=== PATIENT | female | born 2000 | race Caucasian/White ===

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

== ENCOUNTER → 2018-05-08 | Outpatient (REF) | payer OTHER | LOC: M SFHCLERA 16:59 | DX: J02.9 Acute pharyngitis, unspecified (principal) ==

== ENCOUNTER → 2018-07-03 | Outpatient (REF) | payer OTHER ==
[2018-07-04 14:24] LABS: CHLAMYDIA DNA AMPLIFICATION NEGATIVE (NEGATIVE); GC DNA AMPLIFICATION NEGATIVE (NEGATIVE)
== END ==
LOC: M SFHCLERA 20:17
PROVIDERS: ATTEND Physician Assistant
DX: N89.8 Other specified noninflammatory disorders of vagina (principal)

== ENCOUNTER → 2018-12-12 | Outpatient (REF) | payer OTHER | LOC: M SFHCLERA 17:36 | PROVIDERS: ATTEND Nurse Practitioner Family | DX: N89.8 Other specified noninflammatory disorders of vagina (principal) | CPT/HCPCS: 81002; 81025; 87086; G0463 ==

== ENCOUNTER → 2019-02-05 | Outpatient (CLI) | payer OTHER ==
--- NOTE | 2019-02-05 13:49 | REP ---
REASON: Pain. No trauma. COMPARISON: No priors. FINDINGS: No acute fracture or destructive osseous lesion. The mortise is intact. Electronically Signed by Chau Nicole DO 02/05/2019 04:45 P
--- NOTE | 2019-02-05 13:50 | REP ---
REASON: Pain. No trauma. No trauma. No priors. FINDINGS: The joint spaces are symmetric and relatively well maintained. There is no evidence of acute fracture or destructive osseous lesion. IMPRESSION: Negative. Electronically Signed by Chau Nicole DO 02/05/2019 04:45 P
== END ==
LOC: M LRY 11:35
PROVIDERS: ATTEND Nurse Practitioner Family
DX: S99.921A Unspecified injury of right foot, initial encounter (principal); X58.XXXA Exposure to other specified factors, initial encounter; Y92.89 Other specified places as the place of occurrence of the external cause

== ENCOUNTER 2019-11-29 01:22 | Outpatient (CLI) | payer OTHER ==
[~2019-11-29] VITALS: Ht 172.7 cm; Wt 69.1 kg
[~2019-11-29 01:22] MED LIST: MULTTAB20 PO; PROBCAP14 PO; UNIS25TA3 PO; ZOLO25TA PO
[2019-11-29 01:39] VITALS: BP 129/76
--- NOTE | 2019-11-29 02:12 | IPNPDOC ---
Text Note Date of Service The patient was seen on 11/29/19. NOTE 19 yo G1 @36+6wks presents with concern for something hard in her vagina. she thinks that her baby is low. denies becka/vb. +FM. vitals: normal NAD, laying in bed abd: nd, gravid, soft, nt, cephalic le: no edema/erythema/tenderness fht: 135/mod krishan/pos accel/no decel toco: irregular ctx ce: ft/75/-3 (per nursing exam) a/p patient not in labor. discussed s/s of labor with patient. return precautions given. f/u with regularly scheduled clinic. Le, DO VS,Cristianbone, I+O VS, Fishbone, I+O Vital Signs Date Time Temp Pulse Resp B/P (MAP) Pulse Ox O2 Delivery O2 Flow Rate FiO2 11/29/19 01:39 98.6 131 18 129/76 (93) LACIE FRANKLIN DO Nov 29, 2019 02:12
== END 2019-11-29 02:05 | disposition home or self-care (01) ==
LOC: M LDO 01:22
PROVIDERS: ATTEND Obstetrics & Gynecology
DX: O26.893 Other specified pregnancy related conditions, third trimester (principal); Z3A.36 36 weeks gestation of pregnancy
CPT/HCPCS: 59025; G0378; G0463

== ENCOUNTER 2019-12-05 12:07 | Outpatient (CLI) | payer OTHER ==
[~2019-12-05] VITALS: Ht 172.7 cm; Wt 68.7 kg
[2019-12-05 12:24] VITALS: BP 99/57
[2019-12-05] MEDS ORDERED: IRON1TAB2 PO (12:32)
[2019-12-05] MEDS ORDERED: CRAN450T4 PO (12:32)
[2019-12-05] MEDS ORDERED: TUMS750C22 PO (12:32)
[2019-12-05 14:17] VITALS: BP 115/60
--- NOTE | 2019-12-05 16:26 | IPNPDOC ---
Text Note Date of Service The patient was seen on 12/05/19. NOTE [facility] LND Triage Note S: Becki is a 19yo at 37+5wks who presents to LND Triage with c/o SROM this morning. She states she has felt leaking of fluid since early, now with contractions and pressure; also reports that she lost her mucous plug yesterday. She endorses excellent movement, denies VB. Her has been complicated by Depression (on Zoloft); anemia, and underweight (TWG now >40lbs). O: VSS, afebrile, normotensive FHR 140s, moderate variability, + accels, no decels noted CTX by TOCO: present, but irregular and mild by palpation SSE: no pooling, no bleeding VE: /-3, posterior and soft Ferning: Negative ISAC: SDP of LLQ: 4.18x2.79cm; VTX A: 19yo at 37+5wks, not in labor, intact membranes. Category I FHT/reactive. P: Pt discharged home with labor/danger/SROM/return precautions. f/u in clinic for TI tomorrow, [id number] f/u in LND PRN VS,Fishbone, I+O VS, Fishbone, I+O Vital Signs Date Time Temp Pulse Resp B/P (MAP) Pulse Ox O2 Delivery O2 Flow Rate FiO2 12/05/19 14:17 97.7 87 20 115/60 (78) 97 Room Air DANNY ATWOOD CNM Dec 05, 2019 16:26
== END 2019-12-05 14:23 ==
LOC: M LDO 12:07 → UNDOADMIN 12:52 → M LDI 12:52 → M LDO 14:23
PROVIDERS: ATTEND Registered Nurse Maternal Newborn
DX: O26.893 Other specified pregnancy related conditions, third trimester (principal); Z3A.37 37 weeks gestation of pregnancy
CPT/HCPCS: 59025; 76815; G0378; G0463

== ENCOUNTER 2019-12-06 10:18 | Inpatient (IN) | payer OTHER ==
[2019-12-06] VITALS (31 sets, daily range): BP systolic 91–140; BP diastolic 53–82
[~2019-12-06] VITALS: Ht 172.7 cm; Wt 67.4 kg
[~2019-12-06 10:18] MED LIST changes: +CRAN450T4 PO; +IRON1TAB2 PO; +TUMS750C22 PO
[2019-12-06] MEDS ORDERED: LR 1,000 ML IV SCH (10:59)
[2019-12-06 11:28] LABS: BASO # 0.1 10^3/uL (0.0-0.2); BASO % 0.4 % (0.0-1.0); EOS # 0.1 10^3/uL (0.0-0.5); EOS % 0.6 % (0.0-3.0); HEMATOCRIT 35.6 % (36.0-47.0); HEMOGLOBIN 11.9 g/dl (12.0-15.5); LYMPH % 17.2 % (24.0-44.0); MEAN CORPUSCULAR HEMOGLOBIN 30.2 pg (27.0-33.0); MEAN CORPUSCULAR HGB CONC 33.4 g/dl (32.0-36.5); MEAN CORPUSCULAR VOLUME 90.4 fl (80.0-96.0); MONO # 0.9 10^3/uL (0.0-0.8); MONO % 7.7 % (0.0-5.0); NEUTROPHILS # 8.4 10^3/uL (1.5-8.5); NEUTROPHILS % 71.5 % (36.0-66.0); PLATELET COUNT, AUTOMATED 242 10^3/uL (150-450); RED BLOOD COUNT 3.94 10^6/uL (4.00-5.40); WHITE BLOOD COUNT 11.8 10^3/uL (4.0-10.0)
[2019-12-06] MEDS ORDERED: LACTATED RINGER'S 1000 ML IV STA (12:12)
[2019-12-06] MEDS ORDERED: PROMETHAZINE INJ 25 MG/ML VIAL (J2550) IV ONE (12:15)
[2019-12-06] MEDS ORDERED: BUTORPHANOL 2 MG/ML INJ (J0595) IV PRN (12:15)
--- NOTE | 2019-12-06 13:07 | HPEPDOC ---
Obstetrical History & Physical General Date of Admission Dec 06, 2019 at 10:18 History of Present Illness S: Becki is a 19yo at 37+6wks gestation, EDC [id number] by LMP/1TUS, who is being directly admitted to [facility] for SROM and labor. She reports ROM this morning at 0900 with clear fluid, followed by regular painful contractions. She endorses excellent movement and denies VB. Her spouse is here with her at the bedside. complicated by depression (on Zoloft), anemia, an dunderweight (TWG now >40lbs). Her blood Type is A Positive GBS Negative Chief Complaint: Contractions, term, Rupture of membranes Age: 19 : 1 Term: 0 Pre-term: 0 Abortions: 0 Livin Care Care: Good Care Number of Visits: 6 Dating Final EDC: Dec 21, 2019 Final EDC for Daily Update: Dec 21, 2019 Final EDC by: LMP LMP: Mar 08, 2019 Antepartum Course Diagnos(e)s Depression Underweight Anemia Height (inches): 68 Pre- weight (lbs.): 103 Admission Weight (lbs.): 149 Change in Weight (lbs.): 46 Past Medical History Past Obstetrical History : Past Obstetrical History: Primgravida [employer] History: Abnormal Pap (LSIL - needs f/u Pap 05/2020) Past Medical History Medical History Anemia Surgical History: Denies/None Family History Significant Family History: No pertinent family hx Social History Marital Status: Family situation: Spouse/partner home Psychosocial History: Depression * Smoker: non-smoker Alcohol: Denies Drugs: denies Imunizations Tdap status: current Influenza Status: current Allergies Coded Allergies: No Known Drug Allergies (Verified Allergy, Unknown, 07/11/19) Medications Scheduled Cranberry Fruit (Cranberry) 450 Mg Tablet, 1 TAB PO QHS Doxylamine Succinate (Unisom Sleep Aid) 25 Mg Tablet, 1 TAB PO QPM Ferrous Sulfate (Iron) 325 Mg Tablet, 1 TAB PO BID Lactobacillus Acidophilus (Probiotic) 1 Each Capsule, 1 CAP PO DAILY No122/Iron/Folic Acid ( Multi Tablet) 1 Each Tablet, 1 TAB PO DAILY Sertraline Hcl (Zoloft) 25 Mg Tablet, 25 MG PO DAILY Scheduled PRN Calcium Carbonate (Tums) 300 Mg Tab.chew, 1 TAB PO Q6HP PRN for INDIGESTION Physical Examination Physical Examination GENERAL: Alert and oriented times three. ABDOMEN: Gravid and non-tender to touch. FETUS: Is vertex (VTX) by sterile vaginal examination. HEART RATE: Regular rate. LUNGS: Observed nonlabored breathing EXTREMITIES: No edema. Other physical findings O: VSS, afebrile, normotensive FHR 135, moderate variability, + accels, no decels noted CTX by TOCO: q2-3, moderate by palpation VE: 1.5/80/-2 Clear fluid noted Vital Signs/I&O Vital Signs Date Time Temp Pulse Resp B/P (MAP) Pulse Ox O2 Delivery O2 Flow Rate FiO2 12/06/19 12:37 96.5 109 18 110/65 (80) Room Air Laboratory Data 24H LABS Laboratory Tests 2 12/06/19 10:52: Immature Granulocyte % (Auto) 2.6, Neutrophils (%) (Auto) 71.5H, Lymphocytes (%) (Auto) 17.2L, Monocytes (%) (Auto) 7.7H, Eosinophils (%) (Auto) 0.6, Basophils (%) (Auto) 0.4, Neutrophils # (Auto) 8.4, Lymphocytes # (Auto) 2.0, Monocytes # (Auto) 0.9H, Eosinophils # (Auto) 0.1, Basophils # (Auto) 0.1, Nucleated Red Blood Cells % (auto) 0.0 12/06/19 11:55: Serology Scanned Report Hepatitis B Testing CBC/BMP Laboratory Tests 12/06/19 10:52 Pertinent Laboratoy Data Blood Type: A+ HIV: Negative Hepatitis B: Negative Rapid Plasma Reagin: Nonreactive Rubella: Immune Varicella: Immune Chlamydia/Gonorrhea: Negative Group B Streptococcus: Negative Quad Screen Test: Declined Anatomy Ultrasound Ultrasound Date: Aug 07, 2019 Placenta Location: Anterior Normal Anatomy: Yes Placenta Previa: No Steroid Therapy Steroid Therapy: No Vaginal Examination Presentation: Cephalic presentation Assessment/Plan Assessment A: Becki is a 19yo at 37+6wks admitted for SROM and labor, Category I FHT. GBS Negative, blood type A Positive. Plan P: Admit to LND, consent for labor, delivery, possible augmentation, pain control options PIV start, admission labs drawn IV pain meds now, can have epidural as labor progresses CEFM x2 PO and IV hydration Close monitoring of maternal/ status Expectant management at this time Consult with OB as indicated Anticipate DANNY ATWOOD. DANIELLA Dec 06, 2019 13:07
[2019-12-06] MEDS ORDERED: FENTANYL 2MCG/ML ROPIVACAINE 0.2% IN 0.9% NACL 100ML IVBAG As Ordered ONE (16:04)
[2019-12-06] MEDS ORDERED: FENTANYL/ROPIVACAINE/NACL BAG 100 ML EPIDURAL SCH (17:15)
[2019-12-06] MEDS ORDERED: NALOXONE INJ 0.4MG/1ML VIAL (J2310 PER 1MG) IV PRN (17:15)
[2019-12-06] MEDS ORDERED: LACTATED RINGER'S 1000 ML IV PRN (17:15)
[2019-12-06] MEDS ORDERED: ONDANSETRON 4MG/2ML VIAL IV PRN (17:15)
[2019-12-06] MEDS ORDERED: ePHEDrine SULFATE 25 MG/5 ML(5MG/ML) SYRINGE IV PRN (17:15)
[2019-12-06] MEDS ORDERED: REFRIGERATOR IV KEYS XX PRN (17:15)
[2019-12-06] MEDS ORDERED: EPIDURAL/PCA KEYS XX PRN (17:15)
[2019-12-06] MEDS ORDERED: EPIDURAL COMMENT XX SCH (17:15)
[2019-12-06] MEDS ORDERED: diphenhydrAMINE 50MG/ML VIAL (J1200) IV PRN (17:15)
--- NOTE | 2019-12-06 19:05 | IPNPDOC ---
Text Note Date of Service The patient was seen on 12/06/19. NOTE pt is a 19yo at 37+6wks admitted for PROM at 0900. patient ayla on her own. she had epidural placed recently. last checked to be 4cm at around 1600. vitals: normal NAD fht: 135/mod krishan/pos accel/no decel toco: ctx q 1-3mins a/p patient in latent labor. comfortable with epidural. plan to recheck 6hrs from last check, sooner as indicated. start pit as needed. Le, DO VS,Cristianbone, I+O VS, Fishbone, I+O Laboratory Tests 12/06/19 10:52 Vital Signs Date Time Temp Pulse Resp B/P (MAP) Pulse Ox O2 Delivery O2 Flow Rate FiO2 12/06/19 18:28 122 108/60 (76) 12/06/19 18:28 97.8 16 Room Air LACIE FRANKLIN DO Dec 06, 2019 19:05
[2019-12-06] MEDS ORDERED: OXYTOCIN 30 UNITS IN 0.9% NaCl 500ML IV BAG (J2590) As Ordered ONE (23:45)
[2019-12-07] VITALS (12 sets, daily range): BP systolic 106–124; BP diastolic 57–63
[2019-12-07] MEDS ORDERED: OXYTOCIN DRIP 30 UNITS in IV 1 EA IV SCH (01:10)
[2019-12-07] MEDS ORDERED: MEASLES,MUMPS,RUBELLA VACCINE INJ (MMR-II) (90707) SC SCH (01:15)
[2019-12-07] MEDS ORDERED: RHOGAM 300 MCG (1500 IU) INJ (J2790) IM SCH (01:15)
[2019-12-07] MEDS ORDERED: ACETAMINOPHEN TAB 650MG DOSE (2X325MG) PO PRN (01:15)
--- NOTE | 2019-12-07 01:21 | DNPDOC ---
[facility] Delivery Note Delivery Note DATE OF DELIVERY: 12/07/2019 PREDELIVERY DIAGNOSIS: 38+0/7 weeks' gestation and SROM. POST DELIVERY DIAGNOSIS: Delivered. PROCEDURE: Spontaneous vaginal delivery WASTE/MATERIALS EXCHANGE SPECIALIST: Dr. Maryellen Dye DO ANESTHESIA: epidural ESTIMATED BLOOD LOSS: 200 mL. FINDINGS: 6 pound 14 ounce, 3110gm, female , Score 8/9. DELIVERY SUMMARY: With good maternal effort, baby delivered OA, restituted LOT. Anterior shoulder delivered followed by posterior shoulder, body delivered with ease. baby placed on maternal abdomen. Cord allowed to stop pulsating. cord clamped x2 and cut by FOB. pitocin bolus started. placenta delivered spontaneously. fundus massaged firm. inspection reveals 1st degree and right labial laceration repaired with 3-0 vicryl. baby and mother bonding when I left the room. DO NOEMI Dye LUAT N. DO Dec 07, 2019 01:21
[2019-12-07] MEDS ORDERED: ACETAMINOPHEN 500 MG TAB PO PRN (07:45)
[2019-12-07] MEDS: IBUPROFEN 800 MG TAB PO PRN ×2 (08:42→18:30)
[2019-12-07] MEDS: DOCUSATE SODIUM 100 MG CAP PO SCH ×2 (08:42→20:38)
[2019-12-07] MEDS: PRENATAL VITAMINS CHEWABLE TABLET PO SCH (08:42)
[2019-12-07] MEDS: DIBUCAINE 1% OINTMENT 30GM TOP PRN (09:14)
[2019-12-08 06:00] VITALS: BP 107/58
[2019-12-08] MEDS ORDERED: IBUP80TA PO (07:18)
[2019-12-08] MEDS ORDERED: DOCU100C16 PO (07:18)
[2019-12-08] MEDS ORDERED: DIBU10OI TOP (07:18)
[2019-12-08] MEDS: PRENATAL VITAMINS CHEWABLE TABLET PO SCH (08:38)
[2019-12-08] MEDS: DOCUSATE SODIUM 100 MG CAP PO SCH (08:41)
[2019-12-08] MEDS: DIBUCAINE 1% OINTMENT 30GM TOP PRN (15:01)
[2019-12-08] MEDS: IBUPROFEN 800 MG TAB PO PRN (15:02)
[2019-12-08 18:00] VITALS: BP 121/66
== END 2019-12-08 18:30 | disposition home or self-care (01) | DRG 807 ==
LOC: M LDI 10:18 → M OBS 12-07 02:58
PROVIDERS: ADMIT Registered Nurse Maternal Newborn; ATTEND Obstetrics & Gynecology
PROC: 10E0XZZ Delivery of Products of Conception, External Approach (ICD-10-PCS; principal; 2019-12-07)
PROC: 0HQ9XZZ Repair Perineum Skin, External Approach (ICD-10-PCS; 2019-12-07)
DX: O42.013 Preterm premature rupture of membranes, onset of labor within 24 hours of rupture, third trimester (principal); Z37.0 Single live birth; Z3A.37 37 weeks gestation of pregnancy; O70.0 First degree perineal laceration during delivery

== ENCOUNTER → 2020-07-20 | Outpatient (REF) | payer OTHER ==
[~2020-07-20] MED LIST changes: +DIBU10OI TOP; +DOCU100C16 PO; +IBUP80TA PO
== END ==
LOC: M WUC 19:40
PROVIDERS: ATTEND Physician Assistant
DX: N76.0 Acute vaginitis (principal)

== ENCOUNTER → 2020-08-21 | Outpatient (REF) | payer OTHER | LOC: M SFHCLERA 11:36 | PROVIDERS: ATTEND Nurse Practitioner Family | DX: K13.0 Diseases of lips (principal) | CPT/HCPCS: 87070; 87077; 87186; G0463 ==

== ENCOUNTER → 2020-11-12 | Outpatient (REF) | payer OTHER ==
[~2020-11-12] MED LIST changes: -DIBU10OI TOP; +DIBU28OI2 TOP
== END ==
LOC: M SFHCLERA 16:00
PROVIDERS: ATTEND Nurse Practitioner Family
DX: N89.8 Other specified noninflammatory disorders of vagina (principal)

== ENCOUNTER → 2021-04-22 | Outpatient (REF) | payer OTHER | LOC: M LAB REF 15:35 | PROVIDERS: ATTEND Physician Assistant | DX: N39.0 Urinary tract infection, site not specified (principal) ==